=== PATIENT | female | born 1955 | race Caucasian/White ===

== ENCOUNTER 2017-12-14 07:39 | Emergency (ER) | payer OTHER ==
[~2017-12-14] VITALS: Ht 157.5 cm; Wt 81.8 kg
[~2017-12-14 07:39] MED LIST: CIPRO 250MG TA250 MG PO; LISINOPRIL10 MG PO; SYNTHROID0.05 MG PO
[2017-12-14] MEDS ORDERED: LOSARTAN POTASS50 M1 PO (07:48)
[2017-12-14 09:33] VITALS: BP 158/92
== END 2017-12-14 09:33 | disposition home or self-care (01) ==
LOC: ED 07:39
DX: R04.0 Epistaxis (principal); I10 Essential (primary) hypertension; G47.30 Sleep apnea, unspecified; Z79.899 Other long term (current) drug therapy

== ENCOUNTER → 2019-12-20 | Outpatient (CLI) | payer BC ==
[~2019-12-20] MED LIST changes: +LOSARTAN POTASS50 M1 PO
== END ==
LOC: RAD 09:00
DX: K76.0 Fatty (change of) liver, not elsewhere classified (principal); K82.8 Other specified diseases of gallbladder

== ENCOUNTER → 2019-12-30 | Outpatient (CLI) | payer BC | LOC: RAD 08:59 | DX: K76.0 Fatty (change of) liver, not elsewhere classified (principal) | CPT/HCPCS: Q9965; Q9967 ==

== ENCOUNTER → 2021-10-04 | Outpatient (CLI) | payer MEDICARE, OTHER | LOC: RAD 09:59 → MAMMO 10:00 → RAD 10:00 | DX: Z13.820 Encounter for screening for osteoporosis (principal); Z12.31 Encounter for screening mammogram for malignant neoplasm of breast; M85.88 Other specified disorders of bone density and structure, other site; Z78.0 Asymptomatic menopausal state ==

== ENCOUNTER 2023-06-09 09:59 | Outpatient (RCR) | payer MEDICARE, OTHER ==
[~2023-06-09 09:59] MED LIST changes: +LOSARTAN POTAS100 MG PO
== END 2023-07-06 | disposition home or self-care (01) ==
LOC: PT
DX: M54.32 Sciatica, left side (principal)

== ENCOUNTER 2023-07-08 08:00 | Outpatient (RCR) | payer MEDICARE, OTHER | END 2023-08-06 | disposition home or self-care (01) | LOC: PT | DX: M54.32 Sciatica, left side (principal) ==

== ENCOUNTER 2023-08-07 08:00 | Outpatient (RCR) | payer MEDICARE, OTHER | END 2023-09-04 | disposition home or self-care (01) | LOC: PT | DX: M54.32 Sciatica, left side (principal) ==